=== PATIENT | male | born 2005 | race Caucasian/White ===

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

== ENCOUNTER 2025-01-01 01:55 | Inpatient (IN) | payer OTHER ==
[2025-01-01] MEDS ORDERED: Sodium Chloride 0.9% 10 ML Syringe FLUSH PRN (02:04)
[2025-01-01 02:36] LABS: BASOPHILS ABSOLUTE AUTO 0.1 K/mm3 (0.0-0.2); BASOPHILS PERCENT AUTO 0.5 % (0.0-1.0); EOSINOPHILS PERCENT AUTO 0.1 % (0.0-6.0); HEMATOCRIT 46.6 % (42.0-52.0); HEMOGLOBIN 15.7 gm/dl (14.0-18.0); IMMATURE GRAN ABSOLUTE AUTO 0.03 K/mm3 (0.00-0.05); IMMATURE GRAN PERCENT AUTO 0.3 % (0.0-0.4); LYMPHOCYTES ABSOLUTE AUTO 3.5 K/mm3 (1.0-4.8); LYMPHOCYTES PERCENT AUTO 29.5 % (24.0-44.0); MEAN CORPUSCULAR HEMOGLOBIN 29.2 pg (28.0-32.0); MEAN CORPUSCULAR HGB CONC 33.7 g/dl (32.0-36.0); MEAN CORPUSCULAR VOLUME 86.6 fl (83.0-99.0); MONOCYTES ABSOLUTE AUTO 1.1 K/mm3 (0.0-0.8); MONOCYTES PERCENT AUTO 9.3 % (0.0-8.0); NEUTROPHILS ABSOLUTE AUTO 7.1 K/mm3 (1.8-7.7); NEUTROPHILS PERCENT AUTO 60.3 % (41.0-71.0); PLATELET COUNT,PLT 290 K/mm3 (150-400); RED BLOOD CELL COUNT 5.38 M/mm3 (4.52-5.90); WHITE BLOOD CELL COUNT,WBC 11.83 K/mm3 (3.9-11.3)
[2025-01-01 02:38] LABS: APPEARANCE,URINE CLEAR (Clear); BILIRUBIN,URINE NEGATIVE (Negative); COLOR,URINE LIGHT YELLOW (Yellow); GLUCOSE,URINE NEGATIVE (Negative); KETONES,URINE NEGATIVE (Negative); LEUKOCYTE ESTERASE,URINE NEGATIVE (Negative); NITRITE,URINE NEGATIVE (Negative); OCCULT BLOOD,URINE 2+ (Negative); PROTEIN,URINE NEGATIVE (Negative); UROBILINOGEN,URINE 0.2 (0.2-1.0)
[2025-01-01] MEDS: Sodium Chloride 0.9% 1,000 ML IV ONE ×2 (02:39→05:06)
[2025-01-01 02:47] LABS: BARBITURATE SCREEN,URINE NEGATIVE (CUTOFF=200); BENZODIAZEPINES SCREEN,URINE NEGATIVE (CUTOFF=150); BUPRENORPHINE SCREEN,URINE NEGATIVE (CUTOFF=10); METHADONE SCREEN, URINE NEGATIVE (CUT0FF=200); METHAMPHETAMINES SCREEN, URINE NEGATIVE (CUTOFF=500); OXYCODONE SCREEN,URINE NEGATIVE (CUT0FF=100); THC SCREEN,URINE 20 NG/ML NEGATIVE (CUTOFF=50)
[2025-01-01 03:04] LABS: A/G RATIO 1.2 (1-2); ALANINE AMINOTRANSFERASE,ALT 24 U/L (16-63); ALBUMIN 4.3 g/dl (3.4-5.0); ALKALINE PHOSPHATASE 48 U/L (46-116); ANION GAP 18.4 (5-15); ASPARTATE AMNIOTRANSFERASE,AST 18 U/L (15-37); BILIRUBIN TOTAL 0.3 mg/dL (0.2-1.0); BLOOD UREA NITROGEN,BUN 8 mg/dL (7-18); CALCIUM 8.8 mg/dL (8.5-10.1); CARBON DIOXIDE,CO2 23 mEq/L (21-32); CHLORIDE,CL 106 mEq/L (98-107); ESTIMATED GFR 111 mL/min (>60); GLUCOSE RANDOM 120 mg/dL (70-99); MAGNESIUM 2.4 mg/dL (1.8-2.4); POTASSIUM,K 3.4 mEq/L (3.5-5.1); PROTEIN TOTAL,TP 7.9 g/dl (6.4-8.2); SODIUM,NA 144 mEq/L (136-145)
[2025-01-01 03:06] LABS: BACTERIA,URINE RARE /hpf (FEW); EPITHELIAL CELLS,URINE NOT SEEN /hpf (0-5); MUCUS,URINE NOT SEEN /hpf (FEW); WBC,URINE 0-5 /hpf (0-5)
[2025-01-01 03:24] LABS: AMPHETAMINES SCREEN, URINE NEGATIVE (CUTOFF=500)
[2025-01-01] MEDS: Iopamidol 612 MG/ML 30 ML SDV IV ONE (03:31)
[2025-01-01] MEDS: Iopamidol 612 MG/ML 100 ML Bottle IVPUSH ONE (03:31)
[2025-01-01 03:54] LABS: LIPASE 599 U/L (16-77)
[2025-01-01 04:27] LABS: ETHANOL BLOOD MEDICAL 0.27 gm% (0.00)
[2025-01-01] MEDS: Penicillin V Potassium 500 MG Tab PO ONE (06:09)
[2025-01-01] MEDS: Diphtheria,Pertussis(Acell),Tetanus Vaccine 0.5 ML Syringe IM ONE (06:10)
[2025-01-01] MEDS: diphenhydrAMINE 50 MG/ML SDV IM ONE (06:20)
[2025-01-01] MEDS: droPERidol 2.5 MG/ML SDV IM ONE (06:20)
[2025-01-01] MEDS ORDERED: LORazepam 2 MG/ML SDV IVPUSH PRN ×2 (09:18→09:57)
[2025-01-01] MEDS ORDERED: Naloxone 0.4 MG/ML SDV IVPUSH PRN (09:45)
[2025-01-01] MEDS: Potassium Chloride 20 MEQ Tab.ER PO ONE (09:57)
[2025-01-01] MEDS: Acetaminophen 325 MG Tab PO PRN (09:57)
[2025-01-01] MEDS: Lactated Ringers 1,000 ML IV SCH (09:58)
[2025-01-01] MEDS: oxyCODONE 5 MG Tab PO PRN (11:40)
[2025-01-01] MEDS: Morphine 2 MG/ML SYRINGE IVPUSH PRN (16:15)
[2025-01-01] MEDS: Ondansetron 4 MG/2 ML SDV IV PRN (16:46)
[2025-01-01] MEDS: LORazepam 1 MG Tab PO PRN (16:57)
[2025-01-01] MEDS: Melatonin 3 MG Tab PO PRN (21:29)
[2025-01-01] MEDS: Thiamine 100 MG Tab PO SCH (21:29)
[2025-01-01] MEDS: Folic Acid 1 MG Tab PO SCH (21:29)
[2025-01-02 05:57] LABS: BASOPHILS PERCENT AUTO 0.4 % (0.0-1.0); EOSINOPHILS ABSOLUTE AUTO 0.2 K/mm3 (0.0-0.4); EOSINOPHILS PERCENT AUTO 1.8 % (0.0-6.0); HEMATOCRIT 45.8 % (42.0-52.0); HEMOGLOBIN 15.1 gm/dl (14.0-18.0); IMMATURE GRAN ABSOLUTE AUTO 0.03 K/mm3 (0.00-0.05); IMMATURE GRAN PERCENT AUTO 0.3 % (0.0-0.4); LYMPHOCYTES ABSOLUTE AUTO 1.9 K/mm3 (1.0-4.8); LYMPHOCYTES PERCENT AUTO 20.6 % (24.0-44.0); MEAN CORPUSCULAR HEMOGLOBIN 29.2 pg (28.0-32.0); MEAN CORPUSCULAR VOLUME 88.6 fl (83.0-99.0); MEAN PLATELET VOLUME 9.6 fl (9.4-12.4); MONOCYTES ABSOLUTE AUTO 1.1 K/mm3 (0.0-0.8); MONOCYTES PERCENT AUTO 11.9 % (0.0-8.0); PLATELET COUNT,PLT 242 K/mm3 (150-400); RED BLOOD CELL COUNT 5.17 M/mm3 (4.52-5.90); WHITE BLOOD CELL COUNT,WBC 9.27 K/mm3 (3.9-11.3)
[2025-01-02 06:21] LABS: ALBUMIN 3.4 g/dl (3.4-5.0); BILIRUBIN TOTAL 0.7 mg/dL (0.2-1.0); CALCIUM 9.3 mg/dL (8.5-10.1); EST CRCL DRUG DOSING (CG) 94.2 mL/min; MAGNESIUM 1.8 mg/dL (1.8-2.4); PHOSPHORUS 3.8 mg/dL (2.6-4.7); PROTEIN TOTAL,TP 6.8 g/dl (6.4-8.2)
[2025-01-02 07:27] LABS: FOLIC ACID 23.7 ng/mL (8.6-58.9)
[2025-01-02] MEDS: Gadobenate Dimeglumine 529 MG/ML 15 ML SDV IVPUSH ONE (08:39)
[2025-01-02] MEDS: Sodium Chloride 0.9% 10 ML Syringe FLUSH SCH (08:40)
[2025-01-02] MEDS ORDERED: Enoxaparin 40 MG/0.4 ML Syringe SUBCUT SCH (09:00)
[2025-01-02] MEDS: Cyanocobalamin (Vitamin B12) 1,000 MCG Tab PO SCH (09:01)
[2025-01-02 09:03] LABS: VITAMIN D,25-HYDROXY 29.9 ng/ml (30.0-100.0)
[2025-01-02] MEDS: Lactated Ringers 1,000 ML IV SCH (11:03)
[2025-01-02] MEDS: Sennosides/Docusate Sodium 50-8.6 MG Tab PO PRN (20:49)
[2025-01-03 04:34] LABS: HEMATOCRIT 45.4 % (42.0-52.0); HEMOGLOBIN 15.3 gm/dl (14.0-18.0); MEAN CORPUSCULAR HEMOGLOBIN 29.4 pg (28.0-32.0); MEAN CORPUSCULAR HGB CONC 33.7 g/dl (32.0-36.0); MEAN CORPUSCULAR VOLUME 87.3 fl (83.0-99.0); PLATELET COUNT,PLT 235 K/mm3 (150-400); WHITE BLOOD CELL COUNT,WBC 7.73 K/mm3 (3.9-11.3)
[2025-01-03 04:57] LABS: A/G RATIO 0.9 (1-2); ALBUMIN 3.4 g/dl (3.4-5.0); ANION GAP 10.2 (5-15); BILIRUBIN TOTAL 0.5 mg/dL (0.2-1.0); CALCIUM 9.4 mg/dL (8.5-10.1); EST CRCL DRUG DOSING (CG) 94.2 mL/min; POTASSIUM,K 4.2 mEq/L (3.5-5.1)
[2025-01-03 09:28] VITALS: BP 109/55; PULSE 58
[2025-01-06 06:42] LABS: VITAMIN B1, WHOLE BLOOD 166 nmol/L (70-180)
== END 2025-01-03 09:50 | disposition home or self-care (01) | DRG 143 ==
LOC: JD.MS 01:55 → JD.ED 01:55 → JD.MS 06:19 → JD.ED 06:19 → JD.MS 06:19 → JD.ED 07:04 → EDSTATUS 07:27
PROVIDERS: ADMIT Student in an Organized Health Care Education/Training Program; ATTEND Internal Medicine
PROC: 0WQ3XZZ Repair Oral Cavity and Throat, External Approach (ICD-10-PCS; principal; 2025-01-01)
DX: S02.40EA Zygomatic fracture, right side, initial encounter for closed fracture (principal); K85.22 Alcohol induced acute pancreatitis with infected necrosis; S02.40CA Maxillary fracture, right side, initial encounter for closed fracture; F90.9 Attention-deficit hyperactivity disorder, unspecified type; F14.90 Cocaine use, unspecified, uncomplicated; F10.10 Alcohol abuse, uncomplicated; S02.5XXA Fracture of tooth (traumatic), initial encounter for closed fracture; S01.511A Laceration without foreign body of lip, initial encounter; J98.4 Other disorders of lung; V89.2XXA Person injured in unspecified motor-vehicle accident, traffic, initial encounter; Z79.899 Other long term (current) drug therapy; Z98.890 Other specified postprocedural states; Z72.0 Tobacco use
CPT/HCPCS: 12011; 36415; 70450; 70450-26; 70486; 70486-26; 70553; 70553-26; 71045; 71045-26; 71260; 71260-26; 72125; 72125-26; 72170; 72170-26; 73030-26-LT; 73030-LT; 74177; 74177-26; 80053; 80306; 80307; 81001; 82306; 82607; 82746; 83690; 83735; 84100; 84425; 85025; 85027; 90471; 90715; 93005; 93010; 96360; 96361; 97161-GP; 97530-GP; 99285; 99285-25; A9270-GY; A9577; J2270; J2405; J7030; J7120; Q9967

== ENCOUNTER 2025-04-14 16:16 | Inpatient (IN) | payer SELFPAY ==
[2025-04-14] MEDS ORDERED: Sodium Chloride 0.9% 10 ML Syringe FLUSH PRN (16:44)
[2025-04-14 16:58] LABS: MEAN PLATELET VOLUME 9.2 fl (9.4-12.4); NRBC ABSOLUTE 0.00 (0.00-0.02); NRBC PERCENT 0.0 % (0.0-0.2); PLATELET COUNT,PLT 398 K/mm3 (150-400); RED BLOOD CELL COUNT 4.43 M/mm3 (4.52-5.90); WHITE BLOOD CELL COUNT,WBC 20.62 K/mm3 (3.9-11.3)
[2025-04-14 17:04] LABS: INR 1.33
[2025-04-14 17:12] LABS: A/G RATIO 0.6 (1-2); ALANINE AMINOTRANSFERASE,ALT 64.0 U/L (16-63); ASPARTATE AMNIOTRANSFERASE,AST 32.0 U/L (15-37); BILIRUBIN TOTAL 0.2 mg/dL (0.2-1.0); BLOOD UREA NITROGEN,BUN 11.0 mg/dL (7-18); CARBON DIOXIDE,CO2 26.0 mEq/L (21-32); CHLORIDE,CL 99.0 mEq/L (98-107); CREATININE 0.9 mg/dL (0.7-1.3); EST CRCL DRUG DOSING (CG) 102.96 mL/min; ESTIMATED GFR 125.0 mL/min (>60); GLUCOSE RANDOM 120.0 mg/dL (70-99); POTASSIUM,K 4.1 mEq/L (3.5-5.1); PROTEIN TOTAL,TP 7.1 g/dl (6.4-8.2); SODIUM,NA 134.0 mEq/L (136-145)
[2025-04-14 17:15] LABS: LACTIC ACID 1.5 mmol/L (0.4-2.0)
[2025-04-14] MEDS: Ketorolac 30 MG/ML SDV IVPUSH ONE (17:28)
[2025-04-14] MEDS: cefTRIAXone 2 GM in Water For Injection, Sterile 20 ML IVPUSH ONE (17:28)
[2025-04-14] MEDS: Sodium Chloride 0.9% 10 ML Syringe FLUSH ONE (17:40)
[2025-04-14] MEDS: Iopamidol 612 MG/ML 100 ML Bottle IVPUSH ONE (17:40)
[2025-04-14 19:24] LABS: BAND PERCENT MAN 0 % (0-10); BASOPHILS PERCENT MAN 0 (0.2-1.2); EOSINOPHILS PERCENT MAN 1 % (0.8-7.0); LYMPHOCYTES PERCENT MAN 15 % (20-40); MONOCYTES PERCENT MAN 3 % (2-10); PLATELET COUNT ESTIMATE ADEQUATE
[2025-04-15 05:38] LABS: A/G RATIO 0.5 (1-2); ALANINE AMINOTRANSFERASE,ALT 52.0 U/L (16-63); ASPARTATE AMNIOTRANSFERASE,AST 16.0 U/L (15-37); BASOPHILS ABSOLUTE AUTO 0.1 K/mm3 (0.0-0.2); BASOPHILS PERCENT AUTO 0.3 % (0.0-1.0); BILIRUBIN TOTAL 0.2 mg/dL (0.2-1.0); BLOOD UREA NITROGEN,BUN 9.0 mg/dL (7-18); CARBON DIOXIDE,CO2 28.0 mEq/L (21-32); CHLORIDE,CL 103.0 mEq/L (98-107); CREATININE 0.9 mg/dL (0.7-1.3); EOSINOPHILS ABSOLUTE AUTO 0.2 K/mm3 (0.0-0.4); EOSINOPHILS PERCENT AUTO 1.1 % (0.0-6.0); EST CRCL DRUG DOSING (CG) 102.56 mL/min; ESTIMATED GFR 125.0 mL/min (>60); GLUCOSE RANDOM 106.0 mg/dL (70-99); IMMATURE GRAN ABSOLUTE AUTO 0.09 K/mm3 (0.00-0.05); IMMATURE GRAN PERCENT AUTO 0.5 % (0.0-0.4); LYMPHOCYTES ABSOLUTE AUTO 2.3 K/mm3 (1.0-4.8); LYMPHOCYTES PERCENT AUTO 13.6 % (24.0-44.0); MEAN PLATELET VOLUME 9.4 fl (9.4-12.4); MONOCYTES ABSOLUTE AUTO 1.7 K/mm3 (0.0-0.8); MONOCYTES PERCENT AUTO 9.9 % (0.0-8.0); NEUTROPHILS ABSOLUTE AUTO 12.8 K/mm3 (1.8-7.7); NEUTROPHILS PERCENT AUTO 74.6 % (41.0-71.0); NRBC ABSOLUTE 0.00 (0.00-0.02); NRBC PERCENT 0.0 % (0.0-0.2); PLATELET COUNT,PLT 368 K/mm3 (150-400); POTASSIUM,K 3.8 mEq/L (3.5-5.1); PROTEIN TOTAL,TP 5.9 g/dl (6.4-8.2); RED BLOOD CELL COUNT 3.93 M/mm3 (4.52-5.90); SODIUM,NA 138.0 mEq/L (136-145); WHITE BLOOD CELL COUNT,WBC 17.12 K/mm3 (3.9-11.3)
[2025-04-15] MEDS: Acetaminophen/HYDROcodone 325-5 MG Tab PO PRN (11:00)
[2025-04-15] MEDS: cefTRIAXone 2 GM in Water For Injection, Sterile 20 ML IVPUSH SCH (12:25)
[2025-04-15] MEDS: Cefepime 2 GM in Water For Injection, Sterile 20 ML IVPUSH SCH (14:55)
[2025-04-15] MEDS: VANCOmycin 1.25 GM/250 ML 1.25 GM in Premix Bag 1 BAG IV SCH (15:04)
[2025-04-15] MEDS ORDERED: cefTRIAXone 1 GM in Water For Injection, Sterile 10 ML IVPUSH SCH (17:00)
[2025-04-16 06:06] LABS: BASOPHILS ABSOLUTE AUTO 0.1 K/mm3 (0.0-0.2); BASOPHILS PERCENT AUTO 0.4 % (0.0-1.0); EOSINOPHILS ABSOLUTE AUTO 0.2 K/mm3 (0.0-0.4); EOSINOPHILS PERCENT AUTO 1.4 % (0.0-6.0); IMMATURE GRAN ABSOLUTE AUTO 0.07 K/mm3 (0.00-0.05); IMMATURE GRAN PERCENT AUTO 0.4 % (0.0-0.4); LYMPHOCYTES ABSOLUTE AUTO 2.0 K/mm3 (1.0-4.8); LYMPHOCYTES PERCENT AUTO 11.6 % (24.0-44.0); MEAN PLATELET VOLUME 10.1 fl (9.4-12.4); MONOCYTES ABSOLUTE AUTO 1.3 K/mm3 (0.0-0.8); MONOCYTES PERCENT AUTO 7.4 % (0.0-8.0); NEUTROPHILS ABSOLUTE AUTO 13.5 K/mm3 (1.8-7.7); NEUTROPHILS PERCENT AUTO 78.8 % (41.0-71.0); NRBC ABSOLUTE 0.00 (0.00-0.02); NRBC PERCENT 0.0 % (0.0-0.2); PLATELET COUNT,PLT 353 K/mm3 (150-400); RED BLOOD CELL COUNT 4.39 M/mm3 (4.52-5.90); WHITE BLOOD CELL COUNT,WBC 17.14 K/mm3 (3.9-11.3)
[2025-04-16 06:34] LABS: A/G RATIO 0.5 (1-2); ALANINE AMINOTRANSFERASE,ALT 81.0 U/L (16-63); ASPARTATE AMNIOTRANSFERASE,AST 27.0 U/L (15-37); BILIRUBIN TOTAL 0.2 mg/dL (0.2-1.0); BLOOD UREA NITROGEN,BUN 6.0 mg/dL (7-18); CARBON DIOXIDE,CO2 27.0 mEq/L (21-32); CHLORIDE,CL 103.0 mEq/L (98-107); CREATININE 0.7 mg/dL (0.7-1.3); EST CRCL DRUG DOSING (CG) 130.03 mL/min; ESTIMATED GFR 135.0 mL/min (>60); GLUCOSE RANDOM 102.0 mg/dL (70-99); POTASSIUM,K 4.1 mEq/L (3.5-5.1); PROTEIN TOTAL,TP 6.8 g/dl (6.4-8.2); SODIUM,NA 139.0 mEq/L (136-145); VANCOMYCIN RANDOM 32.5 ug/mL
[2025-04-16] MEDS: VANCOmycin 1.25 GM/250 ML 1.25 GM in Premix Bag 1 BAG IV SCH (15:05)
[2025-04-16] MEDS: Levofloxacin/Dextrose 5%-Water 750 MG in Premix Bag 1 BAG IV SCH (15:11)
[2025-04-17 08:42] LABS: BASOPHILS ABSOLUTE AUTO 0.0 K/mm3 (0.0-0.2); BASOPHILS PERCENT AUTO 0.3 % (0.0-1.0); EOSINOPHILS ABSOLUTE AUTO 0.2 K/mm3 (0.0-0.4); EOSINOPHILS PERCENT AUTO 1.4 % (0.0-6.0); IMMATURE GRAN ABSOLUTE AUTO 0.07 K/mm3 (0.00-0.05); IMMATURE GRAN PERCENT AUTO 0.5 % (0.0-0.4); LYMPHOCYTES ABSOLUTE AUTO 1.8 K/mm3 (1.0-4.8); LYMPHOCYTES PERCENT AUTO 13.7 % (24.0-44.0); MEAN PLATELET VOLUME 8.9 fl (9.4-12.4); MONOCYTES ABSOLUTE AUTO 0.6 K/mm3 (0.0-0.8); MONOCYTES PERCENT AUTO 4.6 % (0.0-8.0); NEUTROPHILS ABSOLUTE AUTO 10.5 K/mm3 (1.8-7.7); NEUTROPHILS PERCENT AUTO 79.5 % (41.0-71.0); NRBC ABSOLUTE 0.00 (0.00-0.02); NRBC PERCENT 0.0 % (0.0-0.2); PLATELET COUNT,PLT 468 K/mm3 (150-400); RED BLOOD CELL COUNT 4.81 M/mm3 (4.52-5.90); WHITE BLOOD CELL COUNT,WBC 13.14 K/mm3 (3.9-11.3)
[2025-04-17 08:44] VITALS: BP 106/59; PULSE 92
[2025-04-17 09:17] LABS: A/G RATIO 0.4 (1-2); ALANINE AMINOTRANSFERASE,ALT 142.0 U/L (16-63); ASPARTATE AMNIOTRANSFERASE,AST 50.0 U/L (15-37); BILIRUBIN TOTAL 0.2 mg/dL (0.2-1.0); BLOOD UREA NITROGEN,BUN 9.0 mg/dL (7-18); CARBON DIOXIDE,CO2 29.0 mEq/L (21-32); CHLORIDE,CL 101.0 mEq/L (98-107); CREATININE 1.0 mg/dL (0.7-1.3); EST CRCL DRUG DOSING (CG) 89.89 mL/min; ESTIMATED GFR 111.0 mL/min (>60); GLUCOSE RANDOM 143.0 mg/dL (70-99); POTASSIUM,K 4.7 mEq/L (3.5-5.1); PROTEIN TOTAL,TP 7.5 g/dl (6.4-8.2); SODIUM,NA 138.0 mEq/L (136-145)
== END 2025-04-17 12:17 | disposition home or self-care (01) | DRG 871 ==
LOC: JD.ED 16:16 → JD.MS 18:36 → JD.ED 18:40
PROVIDERS: ADMIT Family Medicine; ATTEND Family Medicine
DX: A41.9 Sepsis, unspecified organism (principal); J18.9 Pneumonia, unspecified organism; F90.9 Attention-deficit hyperactivity disorder, unspecified type; R65.20 Severe sepsis without septic shock; Z98.890 Other specified postprocedural states
CPT/HCPCS: 36415; 71046; 71046-26; 71250; 71250-26; 74177; 74177-26; 80053; 80202; 83605; 85007; 85025; 85027; 85610; 86140; 87040; 94760; 94761; 96374; 96375; 99285; 99285-25; A4216; A9270-GY; J0456; J0692; J0696; J1885; J1956; J3375; J7030; J7050; Q9967